=== PATIENT | female | born 1980 | race Caucasian/White ===

== ENCOUNTER → 2018-06-04 | Outpatient (CLI) | payer MEDICAID, OTHER ==
[~2018-06-04] MED LIST: ACHD5005 PO; ALBU8.5H2; BIRTH CONTROL PILL PO; FRS325T PO; IBP600T1 PO; OMEP-10 PO; PREN1TAB71 PO; RT-ALBUINH IH; [UNRECOGNIZED DRUG - OTHER]
--- NOTE | 2018-06-05 21:56 | Diagnostic Imaging Report ---
INDICATION: Routine screening. No prior mammograms are available for comparison. This is a baseline study. 2-D and 3-D bilateral screening mammography was performed with Computer-Aided Detection (CAD) system. FINDINGS: Scattered fibroglandular densities are identified bilaterally. No mass or malignant-appearing microcalcifications are seen. There are benign calcifications bilaterally. The axillae are unremarkable. IMPRESSION: No mammographic features suspicious for malignancy are identified. ACR BI-RADS Category 2: Benign findings. Result letter will be mailed to the patient. Note: At least 10% of breast cancer is not imaged by mammography. Dictated on workstation # [id number]
== END ==
LOC: RAD 15:05
PROVIDERS: ATTEND Obstetrics & Gynecology
DX: Z12.31 Encounter for screening mammogram for malignant neoplasm of breast (principal)
CPT/HCPCS: 77067